=== PATIENT | female | born 1985 | race Caucasian/White ===

== ENCOUNTER 2023-09-07 11:47 | Emergency (ER) | payer MEDICAID ==
[~2023-09-07] VITALS: Ht 162.6 cm; Wt 95.0 kg
[2023-09-07] MEDS ORDERED: NAPR-56 PO (13:00)
[2023-09-07 13:07] VITALS: BP 123/83; PULSE 74; RESP 16; TEMP 98; O2SAT 99
== END 2023-09-07 13:09 | disposition home or self-care (01) ==
LOC: ER 11:47
DX: K42.9 Umbilical hernia without obstruction or gangrene (principal)
CPT/HCPCS: 99282